=== PATIENT | male | born 1965 | race Caucasian/White ===

== ENCOUNTER 2019-01-31 13:12 | Inpatient (IN) | payer OTHER ==
[~2019-01-31] VITALS: Ht 182.9 cm; Wt 103.9 kg
[2019-01-31] MEDS ORDERED: MOBIC15 MG PO (13:36)
[2019-01-31] MEDS ORDERED: PROTONIX 20 MG20 M1 PO (13:36)
[2019-01-31] MEDS ORDERED: TYLENOL EXTRA500 MG PO (13:37)
[2019-01-31] MEDS ORDERED: FLEXERIL PO (13:38)
[2019-01-31] MEDS ORDERED: ZYRTEC10 M5 PO (14:08)
[2019-01-31 14:46] LABS: HEMOGLOBIN 14.8 gm/dL (14.0-18.0); MCH 31.4 pg (26.0-34.0); MCHC 33.7 g/dL (28.0-37.0); MCV 93.1 fL (80.0-100.0); RBC 4.72 mil/uL (4.50-6.00); RDW 13.2 % (10.5-14.5); URINE BILIRUBIN NEGATIVE (Negative); URINE BLOOD NEGATIVE (Negative); URINE CLARITY CLEAR; URINE COLOR YELLOW; URINE GLUCOSE-RANDOM* NEGATIVE (Negative); URINE KETONES NEGATIVE (Negative); URINE LEUKOCYTES-REFLEX NEGATIVE (Negative); URINE NITRITE-REFLEX NEGATIVE (Negative); URINE PROTEIN (DIPSTICK) NEGATIVE (Negative); URINE UROBILINOGEN 0.2 E.U./dl (0.2-1.0); WBC 6.9 thou/uL (4.0-11.0)
[2019-01-31 14:59] LABS: ALBUMIN 3.5 g/dL (3.4-5.0); POTASSIUM 4.2 mmol/L (3.5-5.1)
[2019-01-31 15:12] LABS: PROTIME 9.9 Seconds (9.3-11.4)
[2019-02-03 09:19] VITALS: BP 130/68
[2019-02-03 15:16] VITALS: BP 132/77
--- NOTE | 2019-02-03 16:54 | NUR ---
ASSUMED CARE AT 0700, SHIFT ASSESSMENT DONE, MEDS GIVEN, LOW GRADE TEMP, TYLENOL GIVEN. GENERALIZED PAIN, DOES NOT WANT PAIN MED. USING CPAP THIS AFTERNOON, BREATHING HEAVY, DYSPNEA, O2 SATURATION IS ABOVE 95%, ON 4L NC OTHERWISE. WILL CONTINUE TO ASSESS AND ASSIST WITH ADLs NEEDED.
--- NOTE | 2019-02-03 16:56 | NUR ---
ASSUMED CARE AT 1400, SHIFT ASSESSMENT DONE, POST OP, LOPEZ DRESSING TO LEFT HIP CLEAN, DRY, INTACT. HEMOVAC DRAIN DRAINING SEROUS FLUIDS. USING THE URINAL. WILL CONTINUE TO ASSESS AND ASSIST WITH ADLs NEEDED.
[2019-02-03 19:35] VITALS: BP 127/80
[2019-02-04 05:20] VITALS: BP 124/67
[2019-02-04 06:08] LABS: HEMATOCRIT 39.3 % (42.0-52.0); HEMOGLOBIN 13.2 gm/dL (14.0-18.0); MCH 31.2 pg (26.0-34.0); MCHC 33.6 g/dL (28.0-37.0); MCV 92.8 fL (80.0-100.0); RBC 4.23 mil/uL (4.50-6.00); RDW 13.1 % (10.5-14.5); WBC 15.3 thou/uL (4.0-11.0)
--- NOTE | 2019-02-04 06:40 | NUR ---
ASSUMED CARE OF PT @ 1900. PT A&OX4. PT C/O OF SEVERE AND WAS MEDICATED ORDERED. PT HAS A LOPEZ DRAIN AND A HEMOVAC. 260ML OF SEROSANGUINOUS FLUID WAS EMPTIED FROM THE HEMOVAC THROUGHOUT MY 12HR SHIFT. PT USES THE URINAL. CALL ALLEN WITHIN REACH
[2019-02-04 08:00] VITALS: BP 110/69
--- NOTE | 2019-02-04 11:10 | O ---
[facility] [place] [address] OPERATIVE REPORT Name: ZACHARY BURRELL Room #: 423-1 ADM IN M.R.#: [id number] Admission: 02/03/19 Attend Phys: Jayson Man MD Discharge: Date of : 65 Report #: [id number] THIS REPORT FOR: //name// CC: Jayson CASTRO CLOUD Physician staff DATE OF SERVICE: 02/03/2019 PREOPERATIVE DIAGNOSIS: Degenerative osteoarthritis, left hip. POSTOPERATIVE DIAGNOSIS: Degenerative osteoarthritis, left hip. PROCEDURE: Left total hip arthroplasty. SURGEON: Jayson Man MD INDICATIONS: This active 53-year-old gentleman complains of severe progressive left hip pain, which makes standing, walking or bending quite uncomfortable. His symptoms have advanced significantly over time. Both clinical and radiographic evaluation confirmed significant degenerative arthritis of the left hip. We discussed a variety of treatment options and he has elected to go ahead with total hip arthroplasty. DESCRIPTION OF PROCEDURE: The patient was taken to the operating room where he was placed under general anesthesia. Prophylactic intravenous antibiotics were administered. He was turned to the right lateral decubitus position. The left hip, thigh and leg were meticulously prepped and draped. A slightly curving skin incision was made centered over the greater trochanter. This was carried through fascia and the gluteus was split bluntly allowing good visualization of the posterior aspect of the hip joint. The short external rotators and capsule were taken down and preserved and tagged with several #1 Tevdek sutures. The hip was dislocated posteriorly and marked degenerative change on both the femoral head and acetabulum was noted. A femoral neck osteotomy was performed and the femoral canal was prepared using canal reamers and hand broaches. A Jett and Nephew size 14 trial stem broach seemed to fit nicely. The trial broach was removed and attention directed to the acetabulum. The acetabulum was sequentially reamed, gradually advancing to a 56 mm reamer. A Jett and Nephew 56 mm StikTite three-hole hemispherical shell was then inserted. This was placed in alignment with his true acetabulum, positioning this in about 45 degrees off of vertical and about 20 degrees of anteversion. It seated nicely and appeared to be secure. In addition, 3 screws were placed through the holes in the apex of the shell, each engaging good periacetabular bone. A 36-mm polyethylene acetabular liner was then inserted, placing the 20-degree elevated rim at about the 10 o'clock posterior position. This seated nicely and appeared to be secure. A permanent Jett and Nephew size 14 Synergy femoral stem was [address] [address] OPERATIVE REPORT Name: ZACHARY BURRELL Room #: 423-1 [facility] IN ..#: [id number] Admission: 02/03/19 Attend Phys: Jayson Man MD Discharge: Date of : 65 Report #: [id number] then inserted, placing this in about 20 degrees of anteversion. It seated nicely and appeared to be secure. A trial reduction was performed and the hip seemed to be nicely reduced and stable when using a +0 neck length and a 36 mm head size. Given his young age and active lifestyle, I felt an Oxinium head would be most appropriate. The Jett and Nephew Oxinium 36 mm head with a +0 neck length was then brought on the field and inserted onto the Rdz taper. It seated nicely and appeared to be secure. The hip was reduced and alignment, range of motion, stability and leg length were assessed and felt to be satisfactory. Good hemostasis was established. The capsule and short external rotators were then repaired back to bone using several #1 Tevdek sutures passed through drill holes in the greater trochanter. This added nicely to hip stability. A single Hemovac was left in the wound exiting through a separate stab incision. The fascia was closed with multiple #1 Vicryl sutures. The subcutaneous tissues were closed with 0 Monocryl. The skin was closed with skin ct. The patient was then awakened and returned to recovery room in good condition. <ELECTRONICALLY SIGNED> By: Jayson Man MD 02/04/19 1110 1144 [id number] Jayson Man MD /nt
--- NOTE | 2019-02-04 15:29 | NUR ---
Pt NOT STARTED IN P.T. THIS MORNING D/T DELAY IN P.T. ORDERS
--- NOTE | 2019-02-04 15:37 | NUR ---
ASSESMENT COMPLETED. VSS. A/O. PAIN MANAGED BY MEDS ORDERED. NO NOTED SOA. NO NV. HEMOVAC DCD ORDERED. LOPEZ DRESSING WITH DRIES DRAINAGE- INTACT. WORKED WITH PT/OT TODAY. PT RESTING IN CHAIR AT THIS TIME. ICA PACKS TO OPERATIVE SITE. NO CONCERSN VOICED. WILL CONT. TO MONITOR.
[2019-02-04 16:55] VITALS: BP 117/70
[2019-02-04 20:15] VITALS: BP 112/66
[2019-02-05 04:45] VITALS: BP 106/68
--- NOTE | 2019-02-05 05:08 | NUR ---
ASSUMED CARE OF PT @1900. ASSESSMENT COMPLETED. PT A&OX4. C/O 01/28 PAIN AND WAS MEDICATED APPROPRAITELY. PT USES A URINAL AT BEDSIDE. LOPEZ DRAIN IN PLACE. DRESSING ON L HIP CLEAN, DR AND INTACT.
[2019-02-05 05:17] LABS: HEMOGLOBIN 12.6 gm/dL (14.0-18.0); MCH 30.9 pg (26.0-34.0); MCHC 33.3 g/dL (28.0-37.0); RBC 4.09 mil/uL (4.50-6.00); RDW 13.5 % (10.5-14.5); WBC 12.6 thou/uL (4.0-11.0)
[2019-02-05 08:00] VITALS: BP 131/81
[2019-02-05 15:56] VITALS: BP 111/75
--- NOTE | 2019-02-05 18:35 | NUR ---
PATIENT HAS BEEN UP AMBULATING TO BATHROOM WITH MINIMAL ASSIST, USING ROLLING WALKER. HE HAS HAD PHYSICAL THERAPY X'S 2 TODAY ; HAS WALKED AROUND THE UNIT WITH PT ASSIST. HE HAS COMPLAINED OF PAIN WITH MOVEMENT; RAISES TO "LEVEL 8" UPON AMBULATION. PATIENT HAS COMPLAINED OF SOME DIZZYNESS, WELL NAUSEA. HE DECLINED THE NEED FOR ZOFRAN, WELL THE NEED FOR MORPHINE. PATIENT HAS BEEN COMPLAINING OF CONSTIPATION, WITH NO BOWEL MOVEMENT FOR 3 DAYS. RECEIVED TELEPHONE ORDERS FOR THE FOLLOWING: MILK OF MAGNESIA 10MLS 6 HOURS PRN CONSTIPATION; THIS MEDICATION WAS GIVEN WITHOUT EFFECTIVENESS. ORDER FOR MAG CITRATE RECEIVED X'S 1 DOSE. MAG CITRATE GIVEN AT 1626; NOT EFFECTIVE OF 1845. APPETITE IS GOOD, HE IS CONSUMING 100% OF ALL MEALS. WILL REPORT TO ONCOMING NURSE.
[2019-02-05 19:08] VITALS: BP 138/97
[2019-02-05 19:19] VITALS: BP 92/55
[2019-02-06 03:45] VITALS: BP 122/86
--- NOTE | 2019-02-06 04:25 | NUR ---
PT STILL HAVE NOT HAD A BM.WALKED COUPLE OF TIMES IN THE UNIT.PRUNE JUICE GIVEN X2 PER PT'S REQUEST THIS SHIFT, PT REPORTS HAVING FLATUS BUT NO BM. PAIN MED GIVEN X1 SO FAR.PT RESTING ON HIS BED AT THIS TIME.SPOUSE IN ROOM.CALL LIGHT WITHIN REACH.
[2019-02-06 05:53] LABS: HEMATOCRIT 37.5 % (42.0-52.0); HEMOGLOBIN 12.6 gm/dL (14.0-18.0); MCH 31.4 pg (26.0-34.0); MCHC 33.7 g/dL (28.0-37.0); MCV 93.4 fL (80.0-100.0); RBC 4.02 mil/uL (4.50-6.00); RDW 13.4 % (10.5-14.5); WBC 9.6 thou/uL (4.0-11.0)
[2019-02-06 07:40] VITALS: BP 117/80
[2019-02-06 11:26] VITALS: BP 117/80
--- NOTE | 2019-02-06 12:46 | NUR ---
FAXED REFERRAL TO [facility] FOR [facility] SPOKE WITH GENO IN INTAKE AND SHE RECEIVED REFERRAL AND WILL BE ABLE TO HAVE O2 TANK DELIVERED PRIOR TO DC TODAY.
[2019-02-06 13:02] VITALS: BP 117/80
--- NOTE | 2019-02-06 15:04 | NUR ---
PATIENT UP AMBULATING WITH WALKER ET STAND BY ASSIST. CONSUMED 100% OF BOTH BREAKFAST ET LUNCH. PATIENT HAD 3 NORMAL BOWEL MOVEMENTS TODAY AFTER HAVING MOM AT 0710. PAIN PARTIALLY RELIEVED BY MEDICATIONS. LOPEZ DRESSING INTACT ON LEFT HIP. PATIENT EDUCATED PER DISCHARGE INSTRUCTIONS. PATIENT SIGNED DISCHARGE PAPERWORK AFTER VERBALIZING AN UNDERSTANDING OF ALL INSTRUCTIONS. PATIENT LEFT AT 1500 WITH ET WHEELCHAIR ESCORT.
--- NOTE | 2019-02-06 15:06 | PATH ---
[facility] [address] [address] PATHOLOGY RPT PROCEDURE Name: ZACHARY BURRELL Room #: 423-1 ADM IN M.R.#: [id number] Admission: 02/03/19 Date of : 65 Discharge: Report #: [id number] Path Case #: [id number] [facility] Accession Number: [id number] . 01 Material submitted: . hip - LEFT FEMORAL HEAD. Modifiers: left . 02 Diagnosis: Femoral head, left, arthroplasty: - Gross examination consistent with femoral head with degenerative joint disease. - Gross examination only. (MAP:[facility]; 02/03/2019) QMS/02/03/2019 . 02 Electronically signed: . Piero Robbins MD, Pathologist NPI- [id number] . 01 Gross description: . Received is a specimen fresh for gross examination in a container labeled with the patient's name and "left femoral head". The specimen consists of a femoral head measuring 6 x 5.5 x 5.5 cm. The specimen is covered in articular cartilage exhibiting a grainy roughened surface. The inferior cut surface of the specimen is yellow, rough, and uniform. The specimen is for gross examination only. (MAP:[facility]; 02/03/2019) /QMS . 02 Pathologist provided ICD-10: M16.12 . 02 CPT . 261397 Specimen Comment: A courtesy copy of this report has been sent to Specimen Comment: [phone], . Specimen Comment: Report sent to / DR CLOUD Specimen Comment: A duplicate report has been generated due to demographic updates. Performed at: [address], [place] [id number] MD Sebastian Ballesteros MD Phone: [phone] Performed at: [address] [id number] MD Meggan Guerrero MD Phone: [phone]
--- NOTE | 2019-02-06 15:30 | NUR ---
ASSESSMENT-PT LIVES AT HOME WITH HIS WHO IS IN GOOD HEALTH AND ABLE TO ASSIST AT HOME. PT TO DC HOME TODAY AND NEEDS A ROLLER WALKER FOR HOME. OFFERED OPTIONS AND PT HAD NO PREFERENCE TO DME CO. CONTACTED DC [employer] SD ANALYST & SHE CONTACTED [facility] TO DELEIVER ROLLER WALKER HERE BEFORE PT IS DISCHARGED THIS AFTERNOON. PT HAS HIS FOLLOW-UP APPT NEXT WEEK. PT VOICES NO OTHER DC CONCERN AT THIS TIME.
== END 2019-02-06 15:13 | disposition home or self-care (01) | DRG 470 ==
LOC: OR 13:12 → 4E 02-03 07:54 → TBA 02-03 07:54 → PRE 02-03 09:27 → OR 02-03 12:55 → 4E 02-03 14:29 → EDSTATUS 02-03 15:20 → PRE 02-03 15:22 → OR 02-03 16:15 → ENTRNSPT 02-06 14:52 → EDTRNSPTSTS 02-06 15:04 → 4E 02-06 15:13
PROVIDERS: ADMIT Orthopaedic Surgery
PROC: 0SRB06Z Replacement of Left Hip Joint with Oxidized Zirconium on Polyethylene Synthetic Substitute, Open Approach (ICD-10-PCS; principal; 2019-02-03)
DX: M16.12 Unilateral primary osteoarthritis, left hip (principal); K21.9 Gastro-esophageal reflux disease without esophagitis; G47.33 Obstructive sleep apnea (adult) (pediatric); F32.9 Major depressive disorder, single episode, unspecified; F41.9 Anxiety disorder, unspecified; I10 Essential (primary) hypertension; Z87.442 Personal history of urinary calculi; Z79.899 Other long term (current) drug therapy
CPT/HCPCS: 10783; 50010; 50101; 50382; 50414; 51412; 53000; 53368; 56521; 56525; 56527; 57095; 62110; 62900; 70005